=== PATIENT | female | born 1940 | race Caucasian/White ===

== ENCOUNTER → 2017-09-09 10:43 | Outpatient (CLI) | payer MEDICARE, SELFPAY ==
--- NOTE | 2017-09-09 10:52 | MM_ITS ---
MM Dig screening mamm BI w/CAD CAD Screening ORDERING PHYSICIAN : Dinesh Fowler MD PATIENT AGE: 77 years GENDER: Female COMPARISON: Previous mammograms: May 2016, 199908 May 2015. March 2014 and 2012. Also March 2012. INDICATION: Routine screening. 77-year-old. No hormones. Previous excisional biopsy left breast. TECHNIQUE: Standard CC and MLO images were obtained. R2 CAD reviewed. Additional nipple profile cc view and nipple profile MLO view included FINDINGS: Moderate residual fibroglandular elements. Minimal vascular calcification. RIGHT BREAST:No new findings] stable but follow-up in one year right LEFT BREAST: . Other is a small asymmetric ovoid area of density measuring up to 11 mm again seen at the upper outer quadrant left breast. This is been seen on studies 2011 and MLO. And although slightly more evident today and measures the same visit that on the 2013 cc view of. Left breast. But I would encourage follow-up in not over one year and. Is some very faint barely evident tiny calcifications just posterior to this area noted more likely reflecting adenosis. These also appear similar to previous studies dating back to at least 2013 With no definitive change IMPRESSION: No new findings of significant concern. Follow-up in one year recommended. Overall stable appearance of breast with minimal minor asymmetric densities left breast again noted, long-standing,. Very faint stippled calcifications just behind this at left breast similar to previous studies. BI-RADS Category: 2 Benign Finding(s) RECOMMENDED FOLLOW-UP: 1YR - 1 YEAR FOLLOW-UP (A letter has been sent to the patient regarding results of the study.)
== END ==
PROVIDERS: Family Provider Internal Medicine Adolescent Medicine; PCP Internal Medicine Adolescent Medicine; Visit Provider Internal Medicine Adolescent Medicine
DX: Z12.31 Encounter for screening mammogram for malignant neoplasm of breast (principal)
CPT/HCPCS: 77067

== ENCOUNTER → 2019-05-25 10:37 | Outpatient (CLI) | payer MEDICARE, SELFPAY ==
--- NOTE | 2019-05-25 10:40 | MM_ITS ---
PROCEDURE: MM DIG SCREENING MAMM BI W/CAD CLINICAL INDICATION: SCREENING There is no personal or family history of breast cancer. There has been previous biopsy left breast for benign disease. COMPARISON: DMDXUAVL DIG MAMM-DX UNI ADD VIEWS-LT from 06/12/2015 [facility] DIG MAMM-SCREEN MAREK from 05/28/2016 [facility] MM Dig screening mamm BI w/CAD from 09/09/2017 TECHNIQUE: Standard CC and MLO images were obtained. R2 CAD reviewed. FINDINGS: Moderate scattered fibroglandular densities are seen throughout both breasts. There are 3 mole markers left breast. There are a few benign-appearing microcalcifications in each breast. There is faint arterial calcification in each breast. There is a stable asymmetric benign-appearing density outer quadrant left breast. IMPRESSION: Fibrofatty parenchyma with no suspicious lesions seen BI-RAD Category: 2 Benign Finding(s) FOLLOW-UP: 1YR 1 Year Follow-up (A letter has been sent to the patient regarding results of the study.) Dictated by: Dr. James Paul MD 05/29/2019 18:[address] James Paul MD in [place] 05/29/2019 18:50
== END ==
PROVIDERS: PCP Internal Medicine Adolescent Medicine; Visit Provider Internal Medicine Adolescent Medicine
DX: Z12.31 Encounter for screening mammogram for malignant neoplasm of breast (principal)
CPT/HCPCS: 77067

== ENCOUNTER → 2020-08-23 10:48 | Outpatient (CLI) | payer MEDICARE, SELFPAY ==
--- NOTE | 2020-08-23 10:51 | MM_ITS ---
PROCEDURE: MM DIG SCREENING MAMM BI W/CAD Referring Doctor: Dinesh Fowler Patient Age:79Y CLINICAL INDICATION: SCREENING routine mammogram 79-year-old. Previous excisional biopsy right breast. No hormones, no new complaints Family history maternal aunt with breast cancer COMPARISON: MG DMSB DIG MAMM-SCREEN MAREK from 04/20/2014 MG [facility]MSB DIG MAMM-SCREEN MAREK from 05/22/2015 MG DMDXUAVL DIG MAMM-DX UNI ADD VIEWS-LT from 06/12/2015 MG [facility] DIG MAMM-SCREEN MAREK from 05/28/2016 MG [facility] MM Dig screening mamm BI w/CAD from 09/09/2017 MG MM DIG SCREENING MAMM BI W/CAD from 05/25/2019 TECHNIQUE: Standard CC and MLO images were obtained. R2 CAD reviewed. Bilateral digital breast tomosynthesis included. Additional MLO view both breast. Additional CC nipple profile view on right FINDINGS: [id number] residual fibroglandular elements. No new dominant or suspicious mass; prior studies support stable architecture. No suspicious calcifications, only minimal vascular calcification bilaterally.. Left breast-no new areas of concern Minor stable scattered densities and skin mole markers again noted Right no significant new findings Few small scattered densities appear similar to previous studies dating these 2017 2015 next bilateral follow-up 1 year recommended IMPRESSION: Stable bilateral mammogram. Bilateral follow-up 1 year recommended No new areas signal navicular of concern Bilateral follow-up 1 year recommended BI-RAD Category: 1 Negative FOLLOW-UP: 1YR 1 Year Follow-up (A letter has been sent to the patient regarding results of the study.) Dictated by: Wilman Salmeron MD 09/05/2020 07:28 Wilman Salmeron MD in [place] 09/05/2020 07:28
== END ==
PROVIDERS: PCP Internal Medicine Adolescent Medicine; Visit Provider Internal Medicine Adolescent Medicine
DX: Z12.31 Encounter for screening mammogram for malignant neoplasm of breast (principal)
CPT/HCPCS: 77063; 77067

== ENCOUNTER → 2021-02-20 10:47 | Outpatient (CLI) | payer MEDICARE, SELFPAY ==
[2021-02-20 12:04] LABS: Basophils # 0.1 K/mm3 (0-0.2); Basophils % 0.7 % (0.1-2.0); Eosinophils # 0.1 K/mm3 (0.0-0.4); Eosinophils % 1.4 % (0.1-12.0); Hematocrit 39.3 % (37.0-47.0); Hemoglobin 13.1 g/dL (12.2-16.2); Lymphocytes % 26.9 % (10-50); Mean Corpuscular HGB Conc 33.3 g/dL (31.8-35.4); Mean Corpuscular Hemoglobin 30.7 pg (27.0-31.2); Mean Corpuscular Volume 92.2 fl (81-99); Mean Platelet Volume 8.2 fl (7.4-10.4); Monocytes # 0.3 K/mm3 (0.1-1.0); Monocytes % 4.5 % (1.7-9.3); Neutrophils # 4.8 K/mm3 (1.8-7.8); Neutrophils % 66.6 % (37.0-80.0); Platelet Count 267 K/mm3 (142-424); Red Blood Count 4.26 M/mm3 (4.20-5.40); Red Cell Distribution Width 14.3 % (11.5-17.5); White Blood Count 7.3 K/mm3 (4.8-10.8)
[2021-02-20 12:39] LABS: Chloride 102 mmol/L (98-107)
[2021-02-20 12:40] LABS: Potassium 4.4 mmoL/L (3.5-5.1); Sodium 143 mmol/L (136-145)
[2021-02-20 12:42] LABS: Alanine Aminotransferase 16 U/L (12-78); Aspartate Amino Transferase 34 U/L (14-36); Blood Urea Nitrogen 22 mg/dl (7-17); Estimated Glomerular Filt Rate 53 ml/min (>60); GFR (African American) 64 ML/MIN (>60)
[2021-02-20 12:43] LABS: Albumin Level 4.6 g/dl (3.5-5.0); Albumin/Globulin Ratio 1.5 (1.1-1.8); Alkaline Phosphatase 91 U/L (38-126); Anion Gap 15.4 mEq/L (5-15); Bilirubin,Total 0.5 mg/dl (0.2-1.3); Calcium 9.9 mg/dl (8.4-10.2); Carbon Dioxide 30 mmol/L (22.0-30.0); Chol/HDL Ratio 3.6 (1-3.5); Cholesterol 232 mg/dl (140-200); Globulin 3.1 g/dL (1.3-3.2); Glucose 103 mg/dl (74-100); HDL Cholesterol 64 mg/dl (40-60); Total Protein,Serum 7.7 g/dl (6.3-8.2); Triglycerides 113 mg/dl (30-150); VLDL Cholesterol 23 mg/dL (0-40)
[2021-02-20 12:54] LABS: Direct LDL Cholesterol 135.49 mg/dL (100-129)
[2021-02-20 13:05] LABS: 25-OH Vitamin D, Total 56.5 ng/mL (30-100)
[2021-02-20 13:14] LABS: Thyroid Stimulating Hormone 0.46 uIU/mL (0.465-4.68)
[2021-02-20 14:13] LABS: Vitamin B12 983 pg/mL (239-931)
== END ==
PROVIDERS: PCP Internal Medicine Adolescent Medicine; Visit Provider Internal Medicine Adolescent Medicine
DX: E03.9 Hypothyroidism, unspecified (principal); E78.5 Hyperlipidemia, unspecified; E53.8 Deficiency of other specified B group vitamins; E55.9 Vitamin D deficiency, unspecified
CPT/HCPCS: 36415; 80053; 80061; 82306; 82607; 84443; 85025

== ENCOUNTER → 2022-04-08 13:13 | Outpatient (CLI) | payer MEDICARE, SELFPAY ==
--- NOTE | 2022-04-08 13:18 | MM_ITS ---
PROCEDURE INFORMATION: Exam: MG Bilateral Screening 3D Mammography Exam date and time: 04/08/2022 1:19 PM Age: 81 years old Clinical indication: Screening examination . Family history of breast carcinoma. History of benign right breast biopsy. TECHNIQUE: Imaging protocol: Bilateral Screening tomosynthesis and 2D mammography including computer-aided detection (CAD) when performed. COMPARISON: 1. MG MM DIG SCREENING MAMM BI W/CAD 08/23/2020 11:04 AM 2. MG MM DIG SCREENING MAMM BI W/CAD 05/25/2019 10:55 AM 3. MG [facility] MM Dig screening mamm BI w/CAD 09/09/2017 11:10 AM FINDINGS: MAMMOGRAPHY: Breast composition: The breasts are heterogeneously dense, which may obscure small masses. Mass: No suspicious masses. Architectural distortion: No suspicious distortion. Calcifications: No suspicious calcifications. Asymmetric density: Questionable 6.5 cm asymmetry in the left lower inner quadrant, middle to posterior depth, best seen on CC frame 20, MLO frame 27. Skin thickening: None. Axillary adenopathy: None. IMPRESSION: 1. Recommend left breast spot compression CC/MLO view and ultrasound for further evaluation of a questionable broad asymmetry in the left lower inner quadrant. 2. No definite mammographic evidence of malignancy in the right breast. ASSESSMENT: BI-RADS Category 0: Incomplete- Need Additional Imaging Evaluation and/or Prior Mammograms for Comparison
== END ==
PROVIDERS: PCP Internal Medicine Adolescent Medicine; Visit Provider Internal Medicine Adolescent Medicine
DX: Z12.31 Encounter for screening mammogram for malignant neoplasm of breast (principal)
CPT/HCPCS: 77063; 77067

== ENCOUNTER → 2022-04-29 13:58 | Outpatient (CLI) | payer MEDICARE, SELFPAY ==
--- NOTE | 2022-04-29 14:02 | MM_ITS ---
PROCEDURE INFORMATION: Exam: US Left Breast, Complete MG Left Diagnostic Breast Tomosynthesis Exam date and time: 04/29/2022 2:27 PM Age: 81 years old Clinical indication: Callback for additional assessment of questionable 6.5 cm asymmetry in the left lower inner quadrant posteriorly identified on screening mammogram 04/08/2022 . TECHNIQUE: Imaging protocol: Complete ultrasound of all four quadrants of the Left breast and the retroareolar regions, including ultrasound of the axilla when performed. Left Diagnostic tomosynthesis and 2D mammography including computer-aided detection (CAD) when performed. Unilateral or bilateral exam. COMPARISON: BL US BREAST-LT COMPLETE W/AXILLA 06/12/2015 2:13 PM FINDINGS: MAMMOGRAPHY: Spot compression views demonstrate a ill-defined 6.5 by 1.8 cm mass within the inner middle and posterior 1/3 left breast, approximating 9 o'clock which is new when compared with prior mammograms. This demonstrates central low density, highly suggestive of benign fat. ULTRASOUND: Ultrasound assessment of left axilla, retroareolar breast, and all 4 quadrants. Along the 10 o'clock axis approximately 7 cm from the nipple there is ill-defined hypoechoic shadowing without discrete dominant mass. Reportedly, this area is palpable has thickening/lump. 2 left axilla lymph node is eccentrically thickened, with cortex measuring up to 1 cm. Otherwise, only normal glandular structures are identified throughout the breast IMPRESSION: 10 o'clock middle 1/3 palpable thickening/mass corresponds with sonographically apparent ill-defined shadowing. This approximates the region of new mammographically apparent asymmetry. Ultrasound-guided biopsy is recommended for definitive characterization. Depending on the results of the breast biopsy, additional sampling of abnormally eccentrically thickened left axillary lymph nodes should be considered. If malignancy is diagnosed, sampling of the axillary lymph nodes would be recommended. If benign concordant diagnosis is achieved then 3 month follow-up targeted left axillary ultrasound would be appropriate to assure resolution of eccentric cortex thickening ASSESSMENT: BI-RADS category 4: Suspicious
== END ==
PROVIDERS: PCP Internal Medicine Adolescent Medicine; Visit Provider Internal Medicine Adolescent Medicine
DX: R92.8 Other abnormal and inconclusive findings on diagnostic imaging of breast (principal)
CPT/HCPCS: 76641; 77061; 77065; G0279

== ENCOUNTER → 2022-05-29 07:22 | Outpatient (CLI) | payer MEDICARE, SELFPAY ==
--- NOTE | 2022-05-29 07:40 | US_ITS ---
FINAL REPORT CLINICAL HISTORY: nodule lt 1000 FINDINGS: ULTRASOUND-GUIDED LEFT BREAST CORE BIOPSY TECHNIQUE: Limited images were obtained to localize region of interest. The left breast was prepped in a routine sterile fashion and locally anesthetized with 1% lidocaine. Standard written informed consent was obtained. The biopsy needle was positioned within the outer periphery of the lesion. A total of 6 passes were made with a 18 gauge core biopsy needle. Lesion was difficult to penetrate with only 3 of the passes yielding adequate tissue. A different needle was chosen. A 16-gauge core biopsy needle within utilized. It should be noted that the lesion was located at approximately 10:00 sonographically although appearing more in the left lower inner quadrant on mammography. A biopsy marker clip was deployed in satisfactory position. Postbiopsy mammogram showed postbiopsy changes with clip in satisfactory position. Procedure was well tolerated . CONCLUSION: 1. Technically successful ultrasound guided core biopsy of left breast lesion as above. 2. Biopsy marker clip deployed Histopathology revealed invasive ductal carcinoma, concordant with mammographic and sonographic findings. Surgical and medical oncologic consultation recommended. Authenticated and ERN
--- NOTE | 2022-05-29 07:41 | MM_ITS ---
FINAL REPORT CLINICAL HISTORY: . clip placement , S/p Ultrasound guided bx FINDINGS: MAMMOGRAM LEFT TECHNIQUE: Standard digital 2-D views COMPARISON: Recent screening exam 04-10-22 DENSITY: There are scattered areas of fibroglandular density FINDINGS: Post biopsy marker clip is noted to be in satisfactory position. Postbiopsy changes are noted. Biopsy marker clip is noted to be contained within an ill-defined focal asymmetry of the left lower inner quadrant. IMPRESSION: Biopsy marker clip in good position RECOMMENDATION: Pending histopathology evaluation Authenticated and ERN
== END ==
PROVIDERS: PCP Internal Medicine Adolescent Medicine; Visit Provider Internal Medicine Adolescent Medicine
DX: R92.8 Other abnormal and inconclusive findings on diagnostic imaging of breast (principal)
CPT/HCPCS: 19083; 76641; 77065; 88305; 88342; 88360